=== PATIENT | female | born 1975 | race African-American/Black ===

== ENCOUNTER 2019-08-29 14:08 | Emergency (ER) | payer BC ==
[~2019-08-29] VITALS: Ht 167.6 cm; Wt 72.6 kg
[~2019-08-29 14:08] MED LIST: METO25TA2 PO; OMEP-229 PO
[2019-08-29 14:57] LABS: BILIRUBIN,URINE NEGATIVE (NEG); CLARITY,URINE CLEAR; COLOR,URINE YELLOW; NITRITE,URINE NEGATIVE (NEG); PROTEIN,URINE NEGATIVE (NEG-TRACE)
[2019-08-29] MEDS ORDERED: ORPHENADRINE CITRATE 60 MG/2 ML VIAL. IV ONE (15:15)
[2019-08-29] MEDS ORDERED: IV NORMAL SALINE 1000ML BAG 1,000 ML IV ONE (15:15)
[2019-08-29] MEDS ORDERED: ONDANSETRON PF 4 MG/2 ML VIAL. IV ONE (15:15)
[2019-08-29 15:18] LABS: BASO % 1 % (0-3); EOS # 0.1 x10^3/uL (0.0-0.7); EOS % 2 % (0-3); HEMATOCRIT 37.7 % (36.0-47.0); HEMOGLOBIN 12.2 g/dL (12.0-15.5); LYMPH # 1.9 x10^3/uL (1.0-4.8); LYMPH % 39 % (24-48); MEAN CORPUSCULAR HEMOGLOBIN 26 pg (25-35); MEAN CORPUSCULAR HGB CONC 33 g/dL (31-37); MEAN CORPUSCULAR VOLUME 81 fL (79-100); MONO # 0.3 x10^3/uL (0.0-1.1); MONO % 6 % (0-9); NEUT # 2.5 x10^3/uL (1.8-7.7); NEUT % 52 % (31-73); PLATELET COUNT 173 x10^3/uL (140-400); RED BLOOD COUNT 4.66 x10^6/uL (3.50-5.40); RED CELL DISTRIBUTION WIDTH 17.6 % (11.5-14.5); WHITE BLOOD COUNT 4.8 x10^3/uL (4.0-11.0)
[2019-08-29 15:19] LABS: CALCIUM 8.3 mg/dL (8.5-10.1); CREATININE 1.2 mg/dL (0.6-1.0); GFR 59.6; POTASSIUM 3.6 mmol/L (3.5-5.1)
[2019-08-29 15:24] LABS: ALBUMIN 3.6 g/dL (3.4-5.0); ALBUMIN/GLOBULIN RATIO 0.9 (1.0-1.7); TOTAL BILIRUBIN 0.4 mg/dL (0.2-1.0); TOTAL PROTEIN 7.4 g/dL (6.4-8.2)
[2019-08-29 15:24] LABS: SQUAMOUS EPITHELIAL CELL,UR MANY /LPF
[2019-08-29 15:26] LABS: BACTERIA,URINE MANY /HPF (0-FEW); RBC,URINE 0 /HPF (0-2)
--- NOTE | 2019-08-29 15:29 | RAD ---
EXAM: Pelvic sonogram. HISTORY: Right lower quadrant pain. TECHNIQUE: Transabdominal and transvaginal sonographic imaging of the pelvis performed. COMPARISON: None. FINDINGS: The uterus measures 8.3 x 4.7 x 3.8 cm. The endometrial stripe measures 8.4 mm in thickness. The right ovary is normal in size and demonstrates normal blood flow. There are dominant right ovarian follicles/follicular cysts measuring 1.5 cm and 1.4 cm. The left ovary is obscured due to bowel gas. There is a 5 mm fluid collection within the endometrial cavity. IMPRESSION: 1. Small dominant right ovarian follicles/follicular cysts. 2. Obscured left ovary. 3. 5 mm fluid collection within the endometrial cavity. The possibly of an early intrauterine gestational sac is excluded given a reported beta Hg level of 0. The imaging appearance does not favor blood products. Therefore, this likely a small endometrial cyst. The endometrial thickness is normal for the premenopausal status of the patient. Electronically signed by: Ping Mayo MD (08/29/2019 3:26 PM) [id number]
--- NOTE | 2019-08-29 15:38 | PHYS DOC ---
Past Medical History Past Medical History: GERD, Hypertension, Urolithiasis Past Surgical History: Appendectomy, , Other Additional Past Surgical Histo: OVARIES, ABDOMINALPLASTY Alcohol Use: None Drug Use: None Adult General Chief Complaint Chief Complaint: PELVIC PAIN HPI HPI Patient is a 44 year old AA female who presents to the ER with complaints of R sided pelvic pain that radiates to her right thigh and increases with movement that started today. She denies any recent injury, fall, or trauma. She denies any nausea, vomiting, diarrhea, constipation, fever, dysuria, hematuria, or increased urinary frequency. Pt denies any difficulty voiding, fever, cough, or shortness of breath. She currently rates her pain a 10/10 on the pain scale and denies any alleviating factors. Her LMP was last week and she denies any concerns of , she reports a BTL several years ago. Pt denies any irregular vaginal discharge, or odor. Complete ROS is neg unless otherwise noted in HPI. Review of Systems Review of Systems See Above Current Medications Current Medications Current Medications Medications (Trade) Dose Ordered Sig/Brenda Start Time Stop Time Status Last Admin Dose Admin Fentanyl Citrate (Fentanyl 2ml Vial) 50 mcg 1X ONCE 08/29/19 15:45 08/29/19 15:46 DC 08/29/19 15:55 50 MCG Ondansetron HCl (Zofran) 4 mg 1X ONCE 08/29/19 15:15 08/29/19 15:16 DC 08/29/19 15:09 4 MG Orphenadrine Citrate (Norflex) 60 mg 1X ONCE 08/29/19 15:15 08/29/19 15:16 DC 08/29/19 15:08 60 MG Sodium Chloride 1,000 ml @ 1,000 mls/hr 1X ONCE 08/29/19 15:15 08/29/19 16:14 DC 08/29/19 15:09 1,000 MLS/HR Allergies Allergies Allergies Coded Allergies Type Severity Reaction Last Updated Verified Sulfa (Sulfonamide Antibiotics) Allergy Mild Hives 10/07/15 Yes Physical Exam Physical Exam See Above Constitutional: Well developed, well nourished, no acute distress, non-toxic appearance. [] HENT: Normocephalic, atraumatic, bilateral external ears normal, oropharynx moist, no oral exudates, nose normal. [] Eyes: PERRLA, EOMI, conjunctiva normal, no discharge. [] Neck: Normal range of motion, no tenderness, supple, no stridor. [] Cardiovascular:Heart rate regular rhythm, no murmur [] Lungs & Thorax: Bilateral breath sounds clear to auscultation [] Abdomen: Bowel sounds normal, soft, RLQ TTP, no guarding, no rebound tenderness, no masses, no pulsatile masses. [] Skin: Warm, dry, no erythema, no rash. [] Back: No tenderness, no CVA tenderness. [] Extremities: No cyanosis, no clubbing, ROM intact, no edema; pain in RLQ that radiates to R inner thigh with movement of RLE noted. [] Neurologic: Alert and oriented X 3, no focal deficits noted. [] Psychologic: Affect normal, judgement normal, mood normal. [] Current Patient Data Vital Signs Vital Signs Date Time Temp Pulse Resp B/P (MAP) Pulse Ox O2 Delivery O2 Flow Rate FiO2 08/29/19 15:55 16 97 Room Air 08/29/19 14:15 98.1 102 139/90 (106) 98.1 Lab Values Laboratory Tests Test 08/29/19 14:10 08/29/19 14:26 08/29/19 14:53 Urine Color Yellow Urine Clarity Clear Urine pH 7.0 Urine Specific [place] >=1.030 Urine Protein Negative mg/dL (NEG-TRACE) Urine Glucose (UA) Negative mg/dL (NEG) Urine Ketones (Stick) Trace mg/dL (NEG) Urine Blood Large (NEG) Urine Nitrite Negative (NEG) Urine Bilirubin Negative (NEG) Urine Urobilinogen Dipstick 1.0 mg/dL (0.2 mg/dL) Urine Leukocyte Esterase Trace (NEG) Urine RBC 0 /HPF (0-2) Urine WBC 5-10 /HPF (0-4) Urine Squamous Epithelial Cells Many /LPF Urine Bacteria Many /HPF (0-FEW) Urine Mucus Marked /LPF POC Urine HCG, Qualitative Hcg negative (Negative) White Blood Count 4.8 x10^3/uL (4.0-11.0) Red Blood Count 4.66 x10^6/uL (3.50-5.40) Hemoglobin 12.2 g/dL (12.0-15.5) Hematocrit 37.7 % (36.0-47.0) Mean Corpuscular Volume 81 fL (79-100) Mean Corpuscular Hemoglobin 26 pg (25-35) Mean Corpuscular Hemoglobin Concent 33 g/dL (31-37) Red Cell Distribution Width 17.6 % (11.5-14.5) H Platelet Count 173 x10^3/uL (140-400) Neutrophils (%) (Auto) 52 % (31-73) Lymphocytes (%) (Auto) 39 % (24-48) Monocytes (%) (Auto) 6 % (0-9) Eosinophils (%) (Auto) 2 % (0-3) Basophils (%) (Auto) 1 % (0-3) Neutrophils # (Auto) 2.5 x10^3/uL (1.8-7.7) Lymphocytes # (Auto) 1.9 x10^3/uL (1.0-4.8) Monocytes # (Auto) 0.3 x10^3/uL (0.0-1.1) Eosinophils # (Auto) 0.1 x10^3/uL (0.0-0.7) Basophils # (Auto) 0.0 x10^3/uL (0.0-0.2) Sodium Level 139 mmol/L (136-145) Potassium Level 3.6 mmol/L (3.5-5.1) Chloride Level 104 mmol/L (98-107) Carbon Dioxide Level 25 mmol/L (21-32) Anion Gap 10 (6-14) Blood Urea Nitrogen 15 mg/dL (7-20) Creatinine 1.2 mg/dL (0.6-1.0) H Estimated GFR (Cockcroft-Gault) 59.6 BUN/Creatinine Ratio 13 (6-20) Glucose Level 99 mg/dL (70-99) Calcium Level 8.3 mg/dL (8.5-10.1) L Total Bilirubin 0.4 mg/dL (0.2-1.0) Aspartate Amino Transferase (AST) 14 U/L (15-37) L Alanine Aminotransferase (ALT) 12 U/L (14-59) L Alkaline Phosphatase 54 U/L (46-116) Total Protein 7.4 g/dL (6.4-8.2) Albumin 3.6 g/dL (3.4-5.0) Albumin/Globulin Ratio 0.9 (1.0-1.7) L Laboratory Tests 08/29/19 14:53 Laboratory Tests 08/29/19 14:53 EKG EKG [] Radiology/Procedures Radiology/Procedures PROCEDURE: PELVIS W/TV EXAM: Pelvic sonogram. HISTORY: Right lower quadrant pain. TECHNIQUE: Transabdominal and transvaginal sonographic imaging of the pelvis performed. COMPARISON: None. FINDINGS: The uterus measures 8.3 x 4.7 x 3.8 cm. The endometrial stripe measures 8.4 mm in thickness. The right ovary is normal in size and demonstrates normal blood flow. There are dominant right ovarian follicles/follicular cysts measuring 1.5 cm and 1.4 cm. The left ovary is obscured due to bowel gas. There is a 5 mm fluid collection within the endometrial cavity. IMPRESSION: 1. Small dominant right ovarian follicles/follicular cysts. 2. Obscured left ovary. 3. 5 mm fluid collection within the endometrial cavity. The possibly of an early intrauterine gestational sac is excluded given a reported beta Hg level of 0. The imaging appearance does not favor blood products. Therefore, this likely a small endometrial cyst. The endometrial thickness is normal for the premenopausal status of the patient.[] Course & Med Decision Making Course & Med Decision Making Pertinent Labs and Imaging studies reviewed. (See chart for details) [] Dragon Disclaimer Dragon Disclaimer This electronic medical record was generated, in whole or in part, using a voice recognition dictation system. Departure Departure Impression: Primary Impression: Sciatic leg pain Additional Impression: Pelvic pain Disposition: 01 HOME, SELF-CARE Condition: STABLE Referrals: MAURI SHERIDAN Jr, MD Patient Instructions: Pelvic Pain, Female, [id number], Sciatica, [id number] Additional Instructions: Fill the prescription(s) and use as directed. Try to apply heat or ice for to sore areas as needed for comfort. Activity as tolerated. Follow up with your Dr. Sheridan, return to the ER if symptoms worsen. Scripts Hydrocodone Bit/Acetaminophen (HYDROCODONE-APAP 5-325 ) 1 Tab Tablet 1 TAB PO PRN Q6HRS PRN for PAIN for 3 Days, #10 TAB 0 Refills Prov: DONA CISNEROS [employer] 08/29/19 Cyclobenzaprine Hcl (CYCLOBENZAPRINE HCL) 10 Mg Tablet 1 TAB PO TID PRN for PAIN for 10 Days, #30 TAB 0 Refills Prov: DONA CISNEROS APRN 08/29/19 Problem Qualifiers DONA CISNEROS APRN Aug 29, 2019 15:38
[2019-08-29] MEDS ORDERED: fentaNYL PF VIAL 100 MCG/2 ML VIAL IV ONE (15:45)
[2019-08-29] MEDS ORDERED: HYDR-2761 PO (16:28)
[2019-08-29] MEDS ORDERED: CYCL10TA2 PO (16:28)
[2019-08-29 16:30] VITALS: BP 116/71
== END 2019-08-29 16:55 | disposition home or self-care (01) ==
LOC: ER 14:08
DX: M79.651 Pain in right thigh (principal); M54.31 Sciatica, right side; R10.2 Pelvic and perineal pain; K21.9 Gastro-esophageal reflux disease without esophagitis; I10 Essential (primary) hypertension; Z90.49 Acquired absence of other specified parts of digestive tract; Z88.2 Allergy status to sulfonamides; Z98.890 Other specified postprocedural states
CPT/HCPCS: 36415; 76830; 76856; 80053; 81001; 81025; 85025; 87086; 96374; 96375; 99285; J2360; J2405; J3010; J7030

== ENCOUNTER → 2020-05-09 | Outpatient (CLI) | payer BC ==
[2020-05-07 14:55] VITALS: BP 153/83
[~2020-05-09] MED LIST changes: +BUTA1CAP29 PO; +CYCL10TA2 PO; +HYDR-2761 PO; +HYDR2TAB31 PO; +IBUP-1060 PO; +METO50TA6 PO; -OMEP-229 PO; +OMEP20CA16 PO; +OMEP40CA45 PO; +OXYC1TAB15 PO; +PNV1TABL25 PO; +SUMA50TA3 PO
--- NOTE | 2020-05-09 16:37 | KCIC ---
AP and lateral views lumbar spine 05/09/2020 INDICATION: Low back pain radiating into left upper thigh. COMPARISON STUDY: None FINDINGS: No evidence of acute fracture or alignment abnormality is identified. Number vertebral body heights are preserved. Disc spaces are preserved. No high-grade bony vertebral narrowing is identified. Small calcifications in the right upper quadrant could represent nephrolithiasis versus material within the enteral stream. IMPRESSION:: 1. No evidence of acute osseous of normality involving the lumbar spine 2. Calcifications in the right upper quadrant could represent nephrolithiasis or calcifications within the enteral stream Electronically signed by: Eleno Jarrell MD (05/09/2020 4:34 PM) [id number]
== END | disposition home or self-care (01) ==
LOC: KCIC 13:34 → MERGE 13:34
PROVIDERS: ATTEND Nurse Practitioner Gerontology
DX: M54.5 Low back pain (principal)
CPT/HCPCS: 72100

== ENCOUNTER → 2020-05-14 | Outpatient (CLI) | payer BC ==
[~2020-05-14] MED LIST changes: -BUTA1CAP29 PO; -HYDR2TAB31 PO; -IBUP-1060 PO; -METO50TA6 PO; -OMEP40CA45 PO; -OXYC1TAB15 PO; -PNV1TABL25 PO; -SUMA50TA3 PO
--- NOTE | 2020-05-14 09:41 | KCIC ---
EXAM: Lumbar spine MRI without contrast. HISTORY: Lower back pain and left lower extremity radiculopathy. TECHNIQUE: Multiplanar, multisequence magnetic resonance imaging of the lumbar spine was performed without contrast. COMPARISON: None. FINDINGS: There is significant listhesis. The vertebral bodies are normal in height. There is no suspicious osseous lesion. There is disc desiccation at L4-L5 and L5-S1. The conus terminates at L1-L2. There is a small incidental Tarlov cyst within the sacral canal. At L1-L2 and L2-L3, there is no stenosis. At L3-L4, there is a lesion within the superior left neural foramen measuring 8 mm craniocaudally by 5 mm anteroposteriorly by 10 mm transversely. This results in mild left foraminal stenosis and deviation of the exiting left L3 nerve root. This is superimposed on a disc bulge and endplate remodeling. At L4-L5, there is a shallow broad-based posterior central disc protrusion and annular tear and shallow left foraminal to extra foraminal disc protrusion and osteophyte complex superimposed on a disc bulge. There is mild left foraminal stenosis. At L5-S1, there is a shallow broad-based posterior central disc protrusion and annular tear superimposed on a disc bulge and endplate remodeling. There is no stenosis. IMPRESSION: 1. L3-L4: 8 mm lesion within the superior left neural foramen resulting in mild foraminal stenosis and deviation of the exiting left L3 nerve root. The imaging appearance favors extruded disc material. Postcontrast imaging may be useful to exclude an alternative etiology such as a neural based lesion. 2. Degenerative change throughout the remainder of the lumbar spine, described in detail above. This is associated with mild left foraminal stenosis at L4-L5. Electronically signed by: Ping Mayo MD (05/14/2020 9:38 AM) [id number]
== END | disposition home or self-care (01) ==
LOC: KCIC MRI 07:50
PROVIDERS: ATTEND Nurse Practitioner Gerontology
DX: M51.17 Intervertebral disc disorders with radiculopathy, lumbosacral region (principal); M47.26 Other spondylosis with radiculopathy, lumbar region; M48.061 Spinal stenosis, lumbar region without neurogenic claudication; M25.78 Osteophyte, vertebrae
CPT/HCPCS: 72148

== ENCOUNTER → 2020-05-27 | Outpatient (CLI) | payer BC ==
[~2020-05-27] MED LIST changes: +BUTA1CAP29 PO; +GADOTERATE 7.5 MMOL/15ML VIAL. IVP ONE; +HYDR2TAB31 PO; +IBUP-1060 PO; +METO50TA6 PO; +OMEP40CA45 PO; +OXYC1TAB15 PO; +PNV1TABL25 PO; +SUMA50TA3 PO
--- NOTE | 2020-05-27 12:03 | KCIC ---
LUMBAR SPINE W CONTRAST History: Lesion at L3-4 on previous imaging Comparison: Noncontrast exam May 14, 2020 Findings: There is again focus of extradural signal abnormality in the anterior left L3-4 neural foramen. This is associated with thin peripheral enhancement, no central enhancement. This in greatest dimension measures about 0.9 cm transverse by 0.2 cm AP by about 0.3 cm cc. There is contact of the ventral surface of the exiting left L3 nerve root, moderate narrowing left neural foramen. There is a small nonenhancing Tarlov cyst at S2 about 0.8 cm. There is no nodular enhancement of the conus or cauda equina or in the intervertebral disc spaces. Impression: 1. There is centrally nonenhancing focus of extradural signal abnormality in the anterior left L3-4 neural foramen, more likely extruded/sequestered disc fragment. There is contact of the exiting left L3 nerve root. Electronically signed by: Saji Marcos MD (05/27/2020 12:01 PM) [id number]
== END | disposition home or self-care (01) ==
LOC: KCIC MRI 10:17
PROVIDERS: ATTEND Nurse Practitioner Gerontology
DX: M89.9 Disorder of bone, unspecified (principal)
CPT/HCPCS: 72149; A9575

== ENCOUNTER → 2020-07-28 | Outpatient (CLI) | payer BC ==
[2020-05-07 14:55] VITALS: BP 153/83
[~2020-07-28] MED LIST changes: +DOCU-109 PO; -GADOTERATE 7.5 MMOL/15ML VIAL. IVP ONE; +HYDR-2145 PO; +HYDR-3164 PO; +METH-38 PO
== END ==
LOC: LAB 10:24
PROVIDERS: ATTEND Neurological Surgery
DX: Z01.812 Encounter for preprocedural laboratory examination (principal); Z20.828 Contact with and (suspected) exposure to other viral communicable diseases
CPT/HCPCS: U0003

== ENCOUNTER 2020-07-30 10:40 | Day surgery (SDC) | payer BC ==
[~2020-07-30] VITALS: Ht 160 cm; Wt 72.5 kg
--- NOTE | 2020-07-30 06:54 | PREOP HP ---
DATE OF SERVICE: 07/30/2020 PREOPERATIVE HISTORY AND PHYSICAL DATE OF SURGERY: 07/30/2020 HISTORY OF PRESENT ILLNESS: The patient is a pleasant 45-year-old who in mid March felt a pop in her back and developed acute pain in her left hip and left anterior thigh. Initially, her pain was very severe burning pain. She said she had 2 rounds of steroids, which helped with the burning. That being said, she says she still must take narcotic pain medication around the clock to help control her severe pain in her left leg. Additionally, she has noted weakness in her left leg. For example, she feels as though her left quadriceps is not as strong as the right side. She notices that when she gets in and out of her car, she must lift her leg up on the seat. There were no problems on the right side. She does have a long history of lower back pain. She has had physical therapy for her lower back in the past. She rates her pain as a 5/10 with [place]. Sitting helps her. PAST MEDICAL HISTORY: Headache, migraine, head or neck injury, hypertension, kidney stones. PAST SURGICAL HISTORY: Ablation in 2019; in 2003, 2009 and 2016; and abdominoplasty in 1999. FAMILY HISTORY: Cancer, diabetes, hypertension and migraine headaches. SOCIAL HISTORY: She is employed as a teacher. . Rarely exercises. Denies substance abuse. Denies tobacco use. Drinks alcohol 1-2 times per month. Drinks coffee and soda daily. ALLERGIES: BACTRIM AND SULFA. CURRENT MEDICATIONS: [place], omeprazole, hydrochlorothiazide. REVIEW OF SYSTEMS: A 12-point review of systems was obtained and is noncontributory except for that mentioned above. PHYSICAL EXAMINATION: NEUROSURGERY EXAMINATION: GENERAL APPEARANCE: Alert, pleasant, no acute distress. HEAD: Normocephalic and atraumatic. SKIN: Warm and dry. MUSCULOSKELETAL: Lumbar paraspinal muscle bulk is normal, restricted range of motion of the lumbar spine, [id number] tenderness of lower lumbar spine with palpation, normal range of motion of the lower extremities bilaterally. EXTREMITIES: No clubbing, cyanosis, or edema. NEUROLOGIC: Alert and oriented x 3, normal recent and remote memory. Strength 5/5 in bilateral lower extremities except for a 4/5 left hip flexor and 4+/5 left quadriceps. Sensory was intact to light touch in bilateral lower extremities except for a mild dysesthetic sensation in the left anterior thigh. Reflexes were present and symmetric in lower extremities bilaterally except for an absent left knee jerk. Negative straight leg raising bilaterally, normal gait. IMAGING: I reviewed both contrast and noncontrast MRI scans of the lumbar spine. On those studies, it appears to be a focal disk herniation, which is foraminal on the left at L3-L4. The disk herniation is of significant size and compressing the left L3 nerve root. ASSESSMENT: Intervertebral disk disorder with radiculopathy, lumbar region. PLAN: We spoke about treatment options. She is concerned by her leg weakness, chronic pain and combined with the narcotics that she must take. She would like to go forward with microsurgery. I did discuss the surgery with her in detail. I also expect that there is a small chance that this is not a disc herniation, but for example a nerve sheath tumor, which will require more complex surgery. After reviewing the films, though I felt that this most likely is a herniated focal disc, I felt that surgery is most appropriate avenue for her. I outlined the postoperative course. I outlined the technique. She would like to proceed. We will make the arrangements. FRANCIA TAM MD DR: CONNOR/se JOB#: [id number] / [id number] TORSTEN
[~2020-07-30 10:40] MED LIST changes: +BACITRACIN 50,000 UNIT in IV NORMAL SALINE 1000ML BAG 1,000 ML IRR ONE; -DOCU-109 PO; +GELATIN SPONGE SIZE 100. ONE; -HYDR-3164 PO; +HYDROmorphone 2 MG/ML VIAL IV PRN; +IV RINGERS,LACTATED 1000ML 1,000 ML IV SCH; +KETOROLAC 60 MG/2 ML VIAL. ONE; +LIDOCAINE 1%/EPI 1:100,000 20 ML VIAL. ONE; -METH-38 PO; +ONDANSETRON PF 4 MG/2 ML VIAL. IV PRN; +THROMBIN TOPICAL 20,000 UNIT SPRAY.SYRN KIT TP ONE; +fentaNYL PF VIAL 100 MCG/2 ML VIAL IV PRN
[2020-07-30] MEDS ORDERED: PROPOFOL 50 ML IV ONE (12:05)
[2020-07-30] MEDS ORDERED: LIDOCAINE 2% PF 5 ML VIAL. ONE (12:05)
[2020-07-30] MEDS ORDERED: PROPOFOL 10 MG/ML (20ML) VIAL. IV ONE (12:05)
[2020-07-30] MEDS ORDERED: REMIFENTANIL 2 MG VIAL. IV ONE (12:06)
[2020-07-30] MEDS ORDERED: ROCURONIUM 50 MG/5 ML VIAL. ONE (12:06)
[2020-07-30] MEDS ORDERED: fentaNYL PF VIAL 100 MCG/2 ML VIAL ONE ×3 (12:06→16:07)
[2020-07-30] MEDS ORDERED: SUCCINYLCHOLINE 200 MG/10 ML VIAL. ONE (12:06)
[2020-07-30] MEDS ORDERED: DEXAMETHASONE SOD PHOS 20 MG/5 ML VIAL. ONE (13:06)
[2020-07-30] MEDS ORDERED: ONDANSETRON PF 4 MG/2 ML VIAL. ONE (13:24)
[2020-07-30] MEDS ORDERED: PHENYLEPHRINE in 0.9% NACL PF 1 MG/10 ML SYRINGE. IV ONE (13:45)
[2020-07-30] MEDS ORDERED: DOCU-109 PO (15:27)
[2020-07-30] MEDS ORDERED: METH-38 PO (15:27)
--- NOTE | 2020-07-30 15:28 | DISCH ---
DISCHARGE INSTRUCTIONS Condition on Discharge Condition on Discharge: Stable Activity After Discharge Activity Instructions for Disc: Activity as tolerated, Avoid exertion Other activity instructions: no driving for a week Bathing Instructions: Shower-keep dressing dry, No Tub Bath until see Lifting Instructions after Dis: No heavy lifting, No pulling or pushing, Do not lift >10 pounds Exercise Instruction after Dis: Progress as tolerated Driving Instructions after Dis: Do not drive today Weight Bearing Status after Di: As tolerated Diet after Discharge Diet after Discharge: Regular Additional Diet Restrictions: resume home diet Diet Texture: Regular Wound Incision Care Wound/Incision Care: Ice to area for comfort Other wound/incision instructi: may remove dressing in 48 hours if dry, leave s yovanny strips in place Checks after Discharge Checks after discharge: Check blood press - daily Contacting the DRNicci after DC Call your doctor for: If your condition worsens Follow-Up Follow up with: Dr. Tam's nurse in 2 weeks [phone] Treatment/Equipment after DC Adaptive Equipment Issued: None FRANCIA TAM MD Jul 30, 2020 15:28
[2020-07-30] MEDS ORDERED: PROCHLORPERAZINE 10 MG/2 ML VIAL. ONE (15:32)
[2020-07-30] MEDS ORDERED: MORPHINE SULFATE 2 MG/ML VIAL. ONE (15:32)
--- NOTE | 2020-07-30 15:47 | OP ---
DATE OF SURGERY: 07/30/2020 PREOPERATIVE DIAGNOSES: Foraminal disk herniation L3-L4 on the left with left lumbar radiculopathy. POSTOPERATIVE DIAGNOSES: Foraminal disk herniation L3-L4 on the left with left lumbar radiculopathy. OPERATION PERFORMED: Transforaminal exposure with decompression of left L3 nerve root with removal of extruded foraminal disk herniation. The operation was done with EMG monitoring, SSEP monitoring, fluoroscopy, microscopic dissection. CLIENT ADVOCATE: JAMES Pineda, assisted with the surgery. She assisted with the exposure, the microdecompression and removal of the herniated disk as well as closure. OPERATIVE INDICATIONS: The patient is a pleasant 45-year-old who developed intractable back and left leg pain, which failed conservative management. On imaging studies, she had a large foraminal disk herniation lifting and compressing the L3 root in the foramen and I recommended lumbar microsurgery. I spoke about the surgery, the risks, technique and expected postoperative course and she wished to go ahead. DESCRIPTION OF PROCEDURE: Following general endotracheal anesthesia, the patient was positioned prone on the Audi table. Lumbar region prepped and draped in standard fashion. CECI hose and AV impulse boots were applied for DVT prophylaxis. A microscope was draped. Fluoroscopy was draped and brought into the field. Monitoring was established. Ancef 2 grams was given less than 1 hour prior to initiation of the surgery. Using fluoroscopic guidance, an incision was made over the L3-L4 interspace. I dissected down through skin and subcutaneous tissue, reflected the paraspinal muscles and placed a [place] microdisk retractor. I did carry my incision slightly further superiorly to slightly better exposure of the foramen and I then brought in the high speed air drill, I drilled a generous hemilaminotomy and then worked out laterally unroofing the foramen. I trimmed away thickened ligamentum flavum, exposing the dura and then I visualized the L3 root within the foramen, it seemed enlarged and lifted and as I worked out laterally and at first, I did not find significant amount of material. I could more medially and there was disk bulging in the mid portion of the foramen and I did enter the disk space and performed diskectomy. This did help. I then worked more medially and in the axilla of the L3 root. There was an extruded disk fragment in the epidural space, which was scarred to the undersurface of the root and lifting it and I gently teased back and began to remove pieces of disk from this location and further superiorly and medially and as I worked, the root became very well decompressed. Once this was accomplished, then I explored carefully. There were no other extruded fragments. I irrigated copiously with antibiotic solution. I closed the wound in layers with absorbable suture after assuring myself of perfect hemostasis, skin was closed with 4-0 subcuticular stitch. I was very pleased with the surgery. FRANCIA TAM MD DR: CONNOR/se JOB#: [id number] / [id number]
[2020-07-30] MEDS: MORPHINE SULFATE 2 MG/ML VIAL. IV PRN ×2 (15:56→16:14)
[2020-07-30] MEDS: PROCHLORPERAZINE 10 MG/2 ML VIAL. IV PRN ×2 (15:57→16:12)
[2020-07-30] MEDS: fentaNYL PF VIAL 100 MCG/2 ML VIAL IV PRN ×4 (15:58→16:44)
[2020-07-30] MEDS ORDERED: HYDROcodone/APAP 5/325MG 1 TAB TABLET PO PRN (16:00)
[2020-07-30] MEDS ORDERED: METHOCARBAMOL 750 MG TABLET PO PRN (16:00)
[2020-07-30] MEDS ORDERED: HYDROcodone/APAP 5/325MG 1 TAB TABLET PO ONE ×2 (16:00→16:45)
[2020-07-30] MEDS ORDERED: HYDR-3164 PO (16:03)
[2020-07-30] MEDS ORDERED: HYDROcodone/APAP 5/325MG 1 TAB TABLET ONE (16:40)
[2020-07-30 16:47] VITALS: BP 158/84
--- NOTE | 2020-08-01 22:06 | PATHOLOGY ---
[facility] Accession Number: [id number] . 01 Material submitted: . vertebral column - LUMBAR DISC AND DECOMPRESSION . 01 Clinical history: . LUMBAR HERNIATED DISC WITH RADICUTOPATHY, LUMBAR FORAMINAL DISC L3 . 02 Diagnosis: "Lumbar disc and decompression", micro discectomy and decompression: - Intervertebral disc material with reactive and degenerative changes. - Decompression tissue showing decalcified bony fragments, cartilage/periosteum and fibrous connective tissue with reactive and degeneration changes. (CLW/db; 08/01/2020) LBQ 08/01/2020 1544 Local . 02 Electronically signed: . Airam Cochran MD, Pathologist NPI- [id number] . 01 Gross description: . The specimen is received in formalin, labeled "Word, Jimmy, lumbar disc and decompression" and consists of multiple segments of soft yellow to fibrous white pink tissue and bone measuring 3.6 x 3.5 x 1.2 cm in aggregate. Represent a portion is submitted in A1 following decalcification. (SDY; 07/31/2020) SYU/SYU 07/31/2020 1725 Local . 02 Pathologist provided ICD-10: M51.26, M54.16 . 02 CPT . 225007, 401484 Specimen Comment: A courtesy copy of this report has been sent to [phone] Specimen Comment: Report sent to Performed at: 01 [facility] [address], [place] [id number] MD Errol Boateng MD Phone: [phone] Performed at: 02 [facility] [address] [place], [place] [id number] MD Abhilash Hatch MD Phone: [phone]
== END 2020-07-30 17:35 | disposition home or self-care (01) ==
LOC: SURG 10:40
PROVIDERS: ATTEND Neurological Surgery
DX: M51.16 Intervertebral disc disorders with radiculopathy, lumbar region (principal); I10 Essential (primary) hypertension; G43.909 Migraine, unspecified, not intractable, without status migrainosus; E78.00 Pure hypercholesterolemia, unspecified; K21.9 Gastro-esophageal reflux disease without esophagitis; F41.9 Anxiety disorder, unspecified; Z79.899 Other long term (current) drug therapy; Z98.890 Other specified postprocedural states; Z88.2 Allergy status to sulfonamides; Z88.8 Allergy status to other drugs, medicaments and biological substances; Z82.49 Family history of ischemic heart disease and other diseases of the circulatory system; Z83.3 Family history of diabetes mellitus
CPT/HCPCS: 63030; 81025; 88304; 88311; 97161; 97530; J0330; J0690; J0780; J1100; J1885; J2270; J2370; J2405; J2704; J3010; J3490; J7030; J7120; 76000